=== PATIENT | male | born 1985 | race Caucasian/White ===

== ENCOUNTER → 2020-03-09 | Outpatient (CLI) | payer OTHER | LOC: COL.RAD 12:24 | DX: N50.9 Disorder of male genital organs, unspecified (principal) ==

== ENCOUNTER → 2022-02-19 | Outpatient (CLI) | payer OTHER | LOC: COL.CARD 08:16 | DX: R03.0 Elevated blood-pressure reading, without diagnosis of hypertension (principal) ==